=== PATIENT | female | born 1970 | race Caucasian/White ===

== ENCOUNTER 2018-04-17 09:29 | Emergency (ER) | payer BC ==
[~2018-04-17] VITALS: Ht 162.6 cm; Wt 95.5 kg
[~2018-04-17 09:29] MED LIST: ACIDOPHILUS X-S1 TAB; B-12 DOTS500 MCG PO; DESERYL100 MG PO; DUONEB 2.5-0.5 M3 ML INH; EFFEXOR75 MG PO; GEODON80 MG PO; GLUCOPHAGE500 MG PO; K-DUR20 MEQ PO; KLONOPIN1 MG PO; LEVAQUIN750 MG PO; LORCET PLUS TAB1 TAB PO; PROPRANOLOL HCL20 MG PO; VISTARIL50 MG PO
[2018-04-17 09:36] VITALS: Ht 162.6 cm; Wt 95.5 kg
[2018-04-17] MEDS ORDERED: BACLOFEN20 M1 PO (10:56)
[2018-04-17] MEDS ORDERED: VOLTAREN75 MG PO (10:56)
[2018-04-17 11:49] VITALS: BP 124/82
== END 2018-04-17 11:50 | disposition home or self-care (01) ==
LOC: D.ER 09:29
DX: M54.5 Low back pain (principal); S49.81XA Other specified injuries of right shoulder and upper arm, initial encounter; W18.30XA Fall on same level, unspecified, initial encounter; Y93.89 Activity, other specified; Y92.019 Unspecified place in single-family (private) house as the place of occurrence of the external cause

== ENCOUNTER → 2018-09-07 13:19 | Outpatient (CLI) | payer OTHER ==
[2018-04-17 09:36] VITALS: BMI 36.1
[~2018-09-07 13:19] MED LIST changes: +BACLOFEN20 M1 PO; +VOLTAREN75 MG PO
== END | disposition home or self-care (01) ==
LOC: D.RAD 13:19
PROVIDERS: ATTEND Pediatrics
DX: Z02.71 Encounter for disability determination (principal)

== ENCOUNTER 2018-11-01 17:37 | Emergency (ER) | payer BC ==
[~2018-11-01] VITALS: Ht 165.1 cm; Wt 96.4 kg
[2018-11-01 18:11] VITALS: Ht 165.1 cm; Wt 96.4 kg
[2018-11-01] MEDS ORDERED: ZANAFLEX4 MG PO (18:15)
[2018-11-01 23:30] VITALS: BP 144/88
== END 2018-11-01 23:30 | disposition home or self-care (01) ==
LOC: D.ER 17:37
DX: M54.5 Low back pain (principal); G89.29 Other chronic pain

== ENCOUNTER 2020-05-26 10:59 | Observation (INO) | payer MEDICAID ==
[~2020-05-26] VITALS: Ht 165.1 cm; Wt 97.5 kg
[~2020-05-26 10:59] MED LIST changes: +ZANAFLEX4 MG PO
[2020-05-26] MEDS ORDERED: CYCLOBENZAPRINE5 MG PO (11:20)
[2020-05-26] MEDS ORDERED: MOBIC7.5 MG (11:21)
[2020-05-26] MEDS ORDERED: GLUCOPHAGE500 MG PO (11:22)
[2020-05-26 11:44] LABS: BASOPHILS 0.3 % (0-2); EOSINOPHILS 0.4 % (0-7); HEMATOCRIT 43.3 % (36.0-48.0); HEMOGLOBIN 15.5 g/dL (12-16); IMMATURE GRANULOCYTES 0.1 % (0-5); LYMPHOCYTE ABS# 1.61 10x3/uL (1.18-3.74); LYMPHOCYTES 22.6 % (15-50); MCH 31.4 pg (26.0-34.0); MCHC 35.8 g/dL (31.0-37.0); MCV 87.7 fL (80.0-100.0); MEAN PLATELET VOLUME 10.4 fL (7.4-10.4); MONOCYTES 4.8 % (2-11); NEUTROPHIL ABS# 5.11 10x3/uL (1.56-6.13); NEUTROPHILS 71.8 % (40-80); PLATELET COUNT 156 10x3/uL (130-400); RBC 4.94 10x6/uL (4.00-5.40); RDW 12.3 % (11.5-14.5); WBC 7.1 10x3/uL (4.8-10.8)
[2020-05-26 11:47] LABS: ANION GAP 9.5 mmol/L (8-16); CARBON DIOXIDE 30.7 mmol/L (21.0-32.0); CREATININE - SERUM 1.3 mg/dL (0.6-1.3); POTASSIUM - SERUM 4.2 mmol/L (3.5-5.1)
[2020-05-26 12:00] LABS: ALBUMIN 4.2 g/dL (3.4-5.0); BILIRUBIN - TOTAL 1.63 mg/dL (0.2-1.3); MAGNESIUM - SERUM 1.9 mg/dL (1.8-2.4); PHOSPHOROUS 3.6 mg/dL (2.5-4.9); PROTEIN - SERUM 8.4 g/dL (6.4-8.2); THYROID STIMULATING HORMONE 0.99 uIU/mL (0.36-3.74)
[2020-05-26 12:40] LABS: BILIRUBIN NEGATIVE (NEGATIVE); KETONE NEGATIVE (NEGATIVE); NITRITE NEGATIVE (NEGATIVE)
--- NOTE | 2020-05-26 12:57 | NUR ---
REPORT GIVEN TO BALBIR MOODY.
[2020-05-26 13:00] VITALS: BP 140/77
--- NOTE | 2020-05-26 13:01 | NUR ---
FSBS 548. ERMD NOTIFIED.
--- NOTE | 2020-05-26 13:41 | NUR ---
PT REPORT GIVEN TO OUSMANE MCGREGOR WITH VERBAL ACKNOWLEDGMENT OBTAINED AT THIS TIME
--- NOTE | 2020-05-26 14:19 | NUR ---
PT TRANSPORT TO ROOM [facility] AT THIS TIME
[2020-05-26 15:57] VITALS: BP 139/74
[2020-05-26 17:33] VITALS: BP 139/74; BMI 35.8
[2020-05-26 19:12] LABS: UDS - AMPHET NEGATIVE QUAL (NEGATIVE); UDS - BARB NEGATIVE QUAL (NEGATIVE); UDS - BENZO NEGATIVE QUAL (NEGATIVE); UDS - COCAINE NEGATIVE QUAL (NEGATIVE); UDS - OPIATE POSITIVE QUAL (NEGATIVE); UDS - PCP NEGATIVE QUAL (NEGATIVE); UDS - THC NEGATIVE QUAL (NEGATIVE)
[2020-05-26 21:16] VITALS: BP 123/65
--- NOTE | 2020-05-26 22:45 | NUR ---
RECIEVED UP IN BED WITH EYS OPEN AND TV ON. ALERT AND ORITNED X4. UP AD ROXANA. IV TO LT AC WITH NS AT 125CC/HR. DENIES ANY NEEDS AT THIS TIME.
[2020-05-27 05:00] VITALS: BP 111/62
[2020-05-27 05:04] LABS: BASOPHILS 0.6 % (0-2); EOSINOPHILS 2.3 % (0-7); HEMATOCRIT 36.4 % (36.0-48.0); IMMATURE GRANULOCYTES 0.2 % (0-5); LYMPHOCYTE ABS# 1.93 10x3/uL (1.18-3.74); LYMPHOCYTES 40.5 % (15-50); MCH 31.5 pg (26.0-34.0); MCHC 35.7 g/dL (31.0-37.0); MCV 88.1 fL (80.0-100.0); MEAN PLATELET VOLUME 9.9 fL (7.4-10.4); MONOCYTES 6.9 % (2-11); NEUTROPHIL ABS# 2.36 10x3/uL (1.56-6.13); NEUTROPHILS 49.5 % (40-80); RBC 4.13 10x6/uL (4.00-5.40); RDW 12.7 % (11.5-14.5)
[2020-05-27 05:13] LABS: PLATELET COUNT 117 10x3/uL (130-400); WBC 4.8 10x3/uL (4.8-10.8)
[2020-05-27 05:18] LABS: CALCIUM 8.4 mg/dL (8.5-10.1); CARBON DIOXIDE 26.9 mmol/L (21.0-32.0); CHLORIDE - SERUM 103 mmol/L (98-107); SODIUM 136 mmol/L (136-145); UREA NITROGEN 10 mg/dL (7-18)
[2020-05-27 05:31] LABS: CALC OSMOLALITY 276 mosm/kg (275-300); CREATININE - SERUM 0.8 mg/dL (0.6-1.3); GLUCOSE 204 mg/dL (74-106); eGFR NON AFRICAN AMERICAN 81 mL/min (90-120)
[2020-05-27 08:00] VITALS: BP 126/59
[2020-05-27 11:00] VITALS: BP 123/60
[2020-05-27 12:43] VITALS: Ht 165.1 cm; Wt 97.5 kg
--- NOTE | 2020-05-27 13:25 | NUR ---
I have reviewed this patient and I concur with the Shift Assessment completed by the Licensed Practical Nurse today this shift.
[2020-05-27] MEDS ORDERED: PROTONIX40 MG PO (14:00)
[2020-05-27] MEDS ORDERED: GLUCOPHAGE500 MG PO (14:01)
[2020-05-27] MEDS ORDERED: GLUCOTROL ER2.5 MG PO (14:02)
[2020-05-27] MEDS ORDERED: HUMALOG 30100 UNITS/ SC (14:07)
[2020-05-27] MEDS ORDERED: INSULINSYR&NEEDLES SC (14:07)
[2020-05-27 15:00] VITALS: BP 120/61
--- NOTE | 2020-05-27 16:00 | NUR ---
PT DC HOME WITH FAMILY MEMBER VIA WHEELCHAIR. DC INSTRUCTIONS PROVIDED VERBALLY AND WRITTEN. PT VERBALIZED UNDERSTANDING. IV DC. CATH TIP INTACT.
== END 2020-05-27 16:00 | disposition home or self-care (01) ==
LOC: D.ER 10:59 → D.M2 14:10 → OBSVTIME 05-27 14:23 → D.M2 05-27 16:00
PROVIDERS: Emergency Medicine; ADMIT Emergency Medicine; ATTEND Emergency Medicine
DX: E11.65 Type 2 diabetes mellitus with hyperglycemia (principal); E87.1 Hypo-osmolality and hyponatremia; J44.9 Chronic obstructive pulmonary disease, unspecified; F41.9 Anxiety disorder, unspecified; Z86.73 Personal history of transient ischemic attack (TIA), and cerebral infarction without residual deficits; Z79.84 Long term (current) use of oral hypoglycemic drugs